=== PATIENT | male | born 1970 | race African-American/Black ===

== ENCOUNTER 2016-11-10 19:14 | Emergency (ER) | payer SELFPAY ==
[2016-11-10] MEDS ORDERED: Lidocaine 1% w/Epinephrine 1:100K 20 ML VIAL ONE (19:59)
--- NOTE | 2016-11-10 20:24 | RAD ---
RIGHT ELBOW FOUR VIEWS 11/10/16 HISTORY: 46-year-old male with left elbow swelling for several weeks without known injury. Mild degenerative changes. No acute fracture or dislocation. No evidence for joint effusion. IMPRESSION: Minimal soft tissue swelling. No fracture or dislocation or other acute osseous abnormality. POS: [facility]
[2016-11-10 22:00] LABS: BF Color Pink; Body Fluid Source SYNOVIAL FLUID; Clarity Cloudy/Turbid (Clear); Tube # EDTA
[2016-11-10 22:01] LABS: RBC Count-Automated 19000 /cumm; WBC/NonHematic-Auto 241 /cumm
[2016-11-10 22:29] LABS: BF Segmented Neutrophils 15 %; Cell Count Non Hematic 74 %; Lymphocytes 11 %
== END 2016-11-10 20:43 | disposition home or self-care (01) ==
LOC: NAV ERS 19:14
DX: M25.421 Effusion, right elbow (principal); I16.0 Hypertensive urgency; I10 Essential (primary) hypertension; F17.210 Nicotine dependence, cigarettes, uncomplicated
CPT/HCPCS: 84560; 85060; 87070; 87205; 89051; 89060; 96372; J0360; J2001

== ENCOUNTER 2017-06-16 09:15 | Emergency (ER) | payer BC, SELFPAY ==
[2017-06-16] MEDS ORDERED: Sodium Chloride 0.9% 500 ML ONE (10:50)
[2017-06-16 10:55] LABS: Bilirubin Negative (Negative); Blood, Urine Trace (Negative); Clarity Slightly Cloudy (Clear); Glucose, Urine (Dipstick) Negative (Negative); Leukocyte Trace (Negative); Nitrite Negative (Negative); Protein, Urine (Dipstick) 100 mg/dL (Neg-Trace); Urobilinogen 0.2 mg/dL (0.2-1.0)
[2017-06-16 11:03] LABS: ALT (SGPT) 26 U/L (8-55); AST (SGOT) 21 U/L (5-34); Albumin 4.1 g/dL (3.5-5.0); Alkaline Phosphatase 78 U/L (40-150); Anion Gap 13 mmol/L (10-20); BUN (Urea Nitrogen) 19 mg/dL (8.9-20.6); Bilirubin, Total 0.3 mg/dL (0.2-1.2); Calc. Creatinine Clearance 0 mL/min (70-130); Calcium 9.3 mg/dL (7.8-10.44); Carbon Dioxide 25 mmol/L (22-29); Chloride 105 mmol/L (98-107); Estimated GFR-MDRD 85; Globulin 3.4 g/dL (2.4-3.5); Glucose 90 mg/dL (70-105); Potassium 4.1 mmol/L (3.5-5.1); Protein, Total 7.5 g/dL (6.0-8.3); Sodium 139 mmol/L (136-145)
[2017-06-16 11:04] LABS: CKMB 4.4 ng/mL (0-6.6); Troponin I 0.021 ng/mL (< 0.028)
[2017-06-16 11:13] LABS: Specific Gravity, Urine 1.035 (1.002-1.036)
[2017-06-16 11:13] LABS: #Basophils 0.1 thou/uL (0.0-0.2); #Eosinphils 0.1 thou/uL (0.0-0.7); #Lymphocytes 3.1 thou/uL (1.20-3.40); #Monocytes 0.5 thou/uL (0.11-0.59); #Neutrophils 3.7 thou/uL (1.40-6.50); %Basophils 1.7 % (0.0-1.0); %Eosinophils 1.8 % (0.0-10.0); %Lymphocytes 40.7 % (21.0-51.0); %Monocytes 6.9 % (0.0-10.0); %Neutrophils 48.8 % (42.0-75.0); Hemoglobin 14.8 g/dL (14.0-18.0); Mean Corpuscular HGB CONC 31.3 g/dL (32.0-36.0); Mean Corpuscular Hemoglobin 27.1 pg (27.0-31.0); Mean Corpuscular Volume 86.8 fl (80.0-94.0); Mean Platelet Volume 7.7 fL (7.4-10.4); Platelet Count 288 thou/uL (130-400); RBC Distribution Width 14.2 % (11.5-14.5); Red Blood Cell (RBC) Count 5.45 mill/uL (4.70-6.10); White Blood Cell (WBC) Count 7.5 thou/uL (4.8-10.8)
[2017-06-16 11:15] LABS: Bacteria/HPF Rare-Few HPF (None Seen); RBC/HPF 0-3 HPF (0-3); Sperm/HPF Rare HPF (None Seen); Squamous Epithelial 0-3 HPF (0-3)
[2017-06-16] MEDS ORDERED: cloNIDine 0.1 MG TAB ONE (11:50)
--- NOTE | 2017-06-16 13:22 | CT ---
HEAD CT NONCONTRAST: Clinical history: Blurred vision. 46-year-old male. Comparison: None. FINDINGS: There are lacunar infarctions involving each basal ganglia, localizing to the head of the left caudat e nucleus and the junction of the head of the right caudate nucleus in the anterior aspect of the rig ht lentiform nucleus. There is an additional age indeterminate lacunar infarction involving the body of the right caudate nucleus. Subtle areas of white matter hypoattenuation of the cerebral hemisphere s indicates mild chronic ischemic disease. There are chronic appearing cavitary infarctions of the le ft aspect of the brain stem. There is a subtle area of low density at the left cerebellar hemisphere which may represent lacunar infarction. No hemorrhage, mass effect, or midline shift. No acute parana sagar sinus fluid level. IMPRESSION: 1. Age indeterminate bilateral basal ganglion infarctions. Consider MRI, in the absence of contraindi cations, to further delineate the chronicity of these findings. 2. Chronic appearing cavitation at the left aspect of the brain stem indicating sequellae from remote small infarctions. POS: [facility]
== END 2017-06-16 15:05 | disposition short-term general hospital (02) ==
LOC: NAV ERS 09:15
DX: I63.9 Cerebral infarction, unspecified (principal); H53.8 Other visual disturbances; I10 Essential (primary) hypertension; F17.210 Nicotine dependence, cigarettes, uncomplicated; Z79.899 Other long term (current) drug therapy
CPT/HCPCS: 36416; 70450; 80053; 81003; 81015; 82553; 84484; 85025; 93005; 96360; 36415-59; J7050

== ENCOUNTER 2017-08-16 20:32 | Emergency (ER) | payer BC ==
[2017-08-16] MEDS ORDERED: cloNIDine 0.1 MG TAB ONE (21:20)
[2017-08-16 21:43] LABS: Hemoglobin 13.7 g/dL (14.0-18.0); Mean Corpuscular HGB CONC 31.6 g/dL (32.0-36.0); Mean Corpuscular Hemoglobin 27.5 pg (27.0-31.0); Mean Platelet Volume 8.9 fL (7.4-10.4); Platelet Count 287 thou/uL (130-400); RBC Distribution Width 13.1 % (11.5-14.5); Red Blood Cell (RBC) Count 4.97 mill/uL (4.70-6.10); White Blood Cell (WBC) Count 8.1 thou/uL (4.8-10.8)
[2017-08-16 21:44] LABS: ALT (SGPT) 19 U/L (8-55); AST (SGOT) 16 U/L (5-34); Alkaline Phosphatase 86 U/L (40-150); Anion Gap 16 mmol/L (10-20); BUN (Urea Nitrogen) 15 mg/dL (8.9-20.6); Bilirubin, Total 0.2 mg/dL (0.2-1.2); CK (CPK) 280 U/L (30-200); Calc. Creatinine Clearance 0 mL/min (70-130); Calcium 9.3 mg/dL (7.8-10.44); Carbon Dioxide 26 mmol/L (22-29); Chloride 104 mmol/L (98-107); Estimated GFR-MDRD 77; Globulin 3.2 g/dL (2.4-3.5); Glucose 133 mg/dL (70-105); Potassium 3.6 mmol/L (3.5-5.1); Protein, Total 7.2 g/dL (6.0-8.3); Sodium 142 mmol/L (136-145)
[2017-08-16 21:45] LABS: CKMB 3.1 ng/mL (0-6.6); Troponin I 0.017 ng/mL (< 0.028)
[2017-08-16 21:52] LABS: Band 3 % (5-11); Eosinophils 2 % (0-10); Lymphocytes 55 % (21-51); MDiff Complete? YES; Monocytes 11 % (0-10); Neutrophil 29 % (42-75); PLT Morphology Comment Appears Adequate; RBC Morphology Normal
--- NOTE | 2017-08-16 21:58 | CT ---
CT OF THE HEAD WITHOUT CONTRAST 08/16/17 COMPARISON: 06/16/17 HISTORY: Dizziness and blurred vision. TECHNIQUE: Serial axial CT imaging at 5 mm intervals from vertex through skull base without contrast. FINDINGS: Imaged paranasal sinuses and mastoid air cells are well aerated. No displaced calvarial fracture. No intracranial hemorrhage, midline shift, or mass effect. There are stable lacunar infarctions noted within the bilateral caudate heads. Stable small lacunar i nfarctions are also noted within the jama, stable. IMPRESSION: No acute findings seen. Chronic findings as described above. POS: [facility]
[2017-08-16] MEDS ORDERED: Meclizine HCl 25 MG TAB ONE (22:02)
== END 2017-08-16 22:20 | disposition home or self-care (01) ==
LOC: NAV ERS 20:32
DX: D72.820 Lymphocytosis (symptomatic) (principal); R42 Dizziness and giddiness; E78.5 Hyperlipidemia, unspecified; Z86.73 Personal history of transient ischemic attack (TIA), and cerebral infarction without residual deficits; I10 Essential (primary) hypertension; F17.210 Nicotine dependence, cigarettes, uncomplicated; Z79.899 Other long term (current) drug therapy
CPT/HCPCS: 36416; 70450; 80053; 82553; 84484; 85025; 93005

== ENCOUNTER 2018-07-16 22:37 | Emergency (ER) | payer BC, SELFPAY ==
[~2018-07-16 22:37] MED LIST: Iopamidol 370 76% 100 ML VIAL ONE
[2018-07-16] MEDS ORDERED: Morphine 4 MG/ML VIAL ONE (23:05)
[2018-07-16] MEDS ORDERED: Acetaminophen 500 MG TAB ONE (23:06)
[2018-07-16] MEDS ORDERED: Metoprolol Tartrate 5 MG/5 ML VIAL ONE (23:06)
[2018-07-16 23:15] LABS: Hemoglobin 12.9 g/dL (14.0-18.0); Lymphocytes 30 % (21-51); MDiff Complete? YES; Mean Corpuscular Volume 87.5 fL (78.0-98.0); Mean Platelet Volume 7.7 fL (7.4-10.4); Monocytes 3 % (0-10); Neutrophil 67 % (42-75); Platelet Count 259 thou/uL (130-400); Platelet Morphology Comment Appears Adequate; RBC Distribution Width 13.2 % (11.5-14.5); RBC Morphology Normal; Red Blood Cell (RBC) Count 4.62 mill/uL (4.70-6.10); White Blood Cell (WBC) Count 7.8 thou/uL (4.8-10.8)
[2018-07-16] MEDS ORDERED: Sodium Chloride 0.9% 500 ML ONE (23:15)
[2018-07-16 23:24] LABS: ALT (SGPT) 27 U/L (8-55); AST (SGOT) 30 U/L (5-34); Albumin 3.9 g/dL (3.5-5.0); Alkaline Phosphatase 81 U/L (40-150); Anion Gap 17 mmol/L (10-20); BUN (Urea Nitrogen) 11 mg/dL (8.9-20.6); Bilirubin, Total 0.4 mg/dL (0.2-1.2); Calc. Creatinine Clearance 0 mL/min (70-130); Carbon Dioxide 25 mmol/L (22-29); Chloride 102 mmol/L (98-107); Estimated GFR-MDRD 76; Globulin 3.2 g/dL (2.4-3.5); Glucose 172 mg/dL (70-105); Potassium 3.5 mmol/L (3.5-5.1); Protein, Total 7.1 g/dL (6.0-8.3); Sodium 140 mmol/L (136-145)
[2018-07-16 23:43] LABS: CKMB 3.5 ng/mL (0-6.6)
--- NOTE | 2018-07-16 23:59 | CT ---
EXAM: CTA of the chest HISTORY: Swelling in the right leg for 2 weeks COMPARISON: None TECHNIQUE: Multiple contiguous axial images were obtained a CTA of the chest with contrast per pulmon ferdinand embolism protocol. 3-D oblique MIP reformats and direct coronal reformats were performed. FINDINGS: HEART: Global E enlarged. PULMONARY ARTERIES: Normal in caliber without filling defects to suggest pulmonary emboli. MEDIASTINUM: No hilar or mediastinal lymphadenopathy. LUNGS: No focal infiltrates or masses. PLEURAL SPACE: No pleural effusion or pneumothorax. CHEST WALL SOFT TISSUES: Unremarkable VISUALIZED OSSEOUS STRUCTURES: Degenerative changes in the spine VISUALIZED SUBDIAPHRAGMATIC STRUCTURES: Unremarkable IMPRESSION: No evidence of pulmonary thromboembolism
== END 2018-07-16 23:59 | disposition short-term general hospital (02) ==
LOC: NAV ERS 22:37
DX: I16.0 Hypertensive urgency (principal); R07.1 Chest pain on breathing; R60.0 Localized edema; E78.5 Hyperlipidemia, unspecified; F17.210 Nicotine dependence, cigarettes, uncomplicated; Z79.899 Other long term (current) drug therapy; Z86.73 Personal history of transient ischemic attack (TIA), and cerebral infarction without residual deficits
CPT/HCPCS: 36415; 71275; 80053; 82553; 84484; 85025; 93005; 94760; 96361; 96374; 96375; J2270; J7050; Q9967

== ENCOUNTER 2019-08-25 22:03 | Emergency (ER) | payer SELFPAY ==
[2019-08-25] MEDS ORDERED: NIFEdipine XL 30 MG TAB ONE (22:31)
[2019-08-25 23:05] LABS: #Basophils 0.1 thou/uL (0.0-0.2); #Eosinphils 0.1 thou/uL (0.0-0.7); #Lymphocytes 3.2 thou/uL (1.20-3.40); #Monocytes 0.8 thou/uL (0.11-0.59); #Neutrophils 4.9 thou/uL (1.40-6.50); %Basophils 1.3 % (0.0-1.0); %Eosinophils 0.9 % (0.0-10.0); %Monocytes 9.1 % (0.0-10.0); %Neutrophils 53.8 % (42.0-75.0); Hemoglobin 13.3 g/dL (14.0-18.0); Mean Corpuscular HGB CONC 30.9 g/dL (32.0-36.0); Mean Corpuscular Hemoglobin 28.2 pg (27.0-31.0); Mean Corpuscular Volume 91.2 fL (78.0-98.0); Mean Platelet Volume 8.8 fL (7.4-10.4); Platelet Count 252 thou/uL (130-400); RBC Distribution Width 13.6 % (11.5-14.5); White Blood Cell (WBC) Count 9.2 thou/uL (4.8-10.8)
--- NOTE | 2019-08-25 23:11 | RAD ---
Chest one view HISTORY: Dyspnea. COMPARISON: 07/16/2018. FINDINGS: Cardiac silhouette is magnified by projection. Pulmonary vasculature is unremarkable. Mediastinum is midline. No lobar consolidation or evidence of pneumothorax. IMPRESSION : No active cardiopulmonary abnormalities are demonstrated.
[2019-08-25 23:26] LABS: ALT (SGPT) 29 U/L (8-55); AST (SGOT) 25 U/L (5-34); Albumin 4.1 g/dL (3.5-5.0); Alkaline Phosphatase 74 U/L (40-110); Anion Gap 13 mmol/L (10-20); BUN (Urea Nitrogen) 12 mg/dL (8.9-20.6); Bilirubin, Total 0.4 mg/dL (0.2-1.2); CK (CPK) 558 U/L (30-200); Calc. Creatinine Clearance 0 mL/min (70-130); Calcium 9.2 mg/dL (7.8-10.44); Carbon Dioxide 28 mmol/L (22-29); Chloride 102 mmol/L (98-107); Estimated GFR-MDRD 75; Globulin 3.4 g/dL (2.4-3.5); Glucose 102 mg/dL (70-105); Potassium 3.2 mmol/L (3.5-5.1); Protein, Total 7.5 g/dL (6.0-8.3); Sodium 140 mmol/L (136-145)
[2019-08-25] MEDS ORDERED: Enoxaparin Sodium 100 MG/ML SYRINGE ONE (23:34)
[2019-08-25] MEDS ORDERED: Enoxaparin Sodium 40 MG/0.4 ML SYRINGE ONE (23:34)
[2019-08-25] MEDS ORDERED: Nitroglycerin 2% Ointment 1 INCH/1 GM Packet ONE (23:34)
[2019-08-25 23:43] LABS: CKMB 3.3 ng/mL (0-6.6)
== END 2019-08-26 00:40 | disposition short-term general hospital (02) ==
LOC: NAV ERS 22:03
DX: I16.1 Hypertensive emergency (principal); R06.02 Shortness of breath; I10 Essential (primary) hypertension; E78.5 Hyperlipidemia, unspecified; Z86.73 Personal history of transient ischemic attack (TIA), and cerebral infarction without residual deficits; Z87.891 Personal history of nicotine dependence
CPT/HCPCS: 36415; 71045; 80053; 82550; 82553; 83880; 84484; 85025; 93005; 96372; J1650

== ENCOUNTER 2019-11-09 21:14 | Emergency (ER) | payer OTHER ==
[2019-11-09 21:19] LABS: #Basophils 0.1 thou/uL (0.0-0.2); #Eosinphils 0.1 thou/uL (0.0-0.7); #Lymphocytes 1.9 thou/uL (1.20-3.40); #Monocytes 0.7 thou/uL (0.11-0.59); #Neutrophils 5.3 thou/uL (1.40-6.50); %Basophils 0.9 % (0.0-1.0); %Eosinophils 1.4 % (0.0-10.0); %Lymphocytes 23.8 % (21.0-51.0); %Monocytes 8.7 % (0.0-10.0); %Neutrophils 65.2 % (42.0-75.0); Hemoglobin 12.1 g/dL (14.0-18.0); Mean Corpuscular HGB CONC 30.9 g/dL (32.0-36.0); Mean Corpuscular Hemoglobin 28.3 pg (27.0-31.0); Mean Corpuscular Volume 91.5 fL (78.0-98.0); Mean Platelet Volume 8.3 fL (7.4-10.4); Platelet Count 265 thou/uL (130-400); RBC Distribution Width 14.3 % (11.5-14.5); Red Blood Cell (RBC) Count 4.28 mill/uL (4.70-6.10); White Blood Cell (WBC) Count 8.1 thou/uL (4.8-10.8)
[2019-11-09] MEDS ORDERED: Amlodipine 5 MG TAB ONE ×2 (21:20→21:23)
[2019-11-09] MEDS ORDERED: hydrALAZINE 20 MG/ML VIAL ONE (21:23)
[2019-11-09] MEDS ORDERED: Metoprolol Tartrate 5 MG/5 ML VIAL ONE (21:23)
[2019-11-09 21:28] LABS: Critical Call Chemistry 2125 LH; Glucose 162 mg/dL (70-105)
[2019-11-09 21:30] LABS: Albumin 3.8 g/dL (3.5-5.0); Anion Gap 14 mmol/L (10-20); BUN (Urea Nitrogen) 18 mg/dL (8.9-20.6); Bilirubin, Total 0.3 mg/dL (0.2-1.2); Calc. Creatinine Clearance 0 mL/min (70-130); Calcium 8.9 mg/dL (7.8-10.44); Carbon Dioxide 26 mmol/L (22-29); Chloride 105 mmol/L (98-107); Estimated GFR-MDRD 76; Globulin 3.1 g/dL (2.4-3.5); Potassium 3.5 mmol/L (3.5-5.1); Protein, Total 6.9 g/dL (6.0-8.3); Sodium 141 mmol/L (136-145)
[2019-11-09 21:31] LABS: ALT (SGPT) 50 U/L (8-55); AST (SGOT) 25 U/L (5-34); Alkaline Phosphatase 87 U/L (40-110); CK (CPK) 424 U/L (30-200)
[2019-11-09 21:41] LABS: CKMB 4.5 ng/mL (0-6.6)
--- NOTE | 2019-11-09 21:56 | RAD ---
AP CHEST: 11/09/19 HISTORY: Dyspnea. COMPARISON: 08/25/19. Borderline cardiomegaly is stable. The lung paige appear clear and unchanged. Vascular markings with in normal range. IMPRESSION: No acute process or interval change. POS: [facility]
[2019-11-09] MEDS ORDERED: Diltiazem 125 MG/25 ML ONE (22:42)
[2019-11-09] MEDS ORDERED: Sodium Chloride 0.9% 100 ML ONE (22:42)
[2019-11-09] MEDS ORDERED: Nitroglycerin 2% Ointment 1 INCH/1 GM Packet ONE (23:46)
== END 2019-11-10 00:03 | disposition short-term general hospital (02) ==
LOC: NAV ERS 21:14
DX: R06.02 Shortness of breath (principal); I10 Essential (primary) hypertension; E78.5 Hyperlipidemia, unspecified; E78.00 Pure hypercholesterolemia, unspecified; Z87.891 Personal history of nicotine dependence; Z79.899 Other long term (current) drug therapy
CPT/HCPCS: 71045; 80053; 82550; 82553; 83880; 84484; 85025; 94760; 96365; 96375; 96376; J0360

== ENCOUNTER 2019-12-16 18:30 | Emergency (ER) | payer OTHER ==
--- NOTE | 2019-12-16 19:44 | RAD ---
Lumbar spine 3 views HISTORY: Low back pain. FINDINGS: There are 5 lumbar type vertebrae. Pedicles are intact. Gentle leftward convex curvature. V ertebral body heights and alignment are maintained. Osteophytosis of the lower facets. Prominent horizontal artifact lines are present on the lateral pricila ges. Numerous attempts and different techniques used by the technologist to optimize images. Segmentation of the right side of the sacrum noted. IMPRESSION : No acute osseous abnormalities are demonstrated.
[2019-12-16] MEDS ORDERED: Cyclobenzaprine 10 MG TAB ONE (20:18)
== END 2019-12-16 20:23 | disposition home or self-care (01) ==
LOC: NAV ERS 18:30
DX: M54.5 Low back pain (principal); E78.5 Hyperlipidemia, unspecified; E78.00 Pure hypercholesterolemia, unspecified; I10 Essential (primary) hypertension; Z87.891 Personal history of nicotine dependence; Z79.899 Other long term (current) drug therapy
CPT/HCPCS: 72100